=== PATIENT | female | born 1990 | race Caucasian/White ===

== ENCOUNTER → 2018-02-23 13:42 | Outpatient (CLI) | payer OTHER, MEDICAID, SELFPAY | PROVIDERS: Visit Provider Physician Assistant | DX: J02.9 Acute pharyngitis, unspecified (principal) | CPT/HCPCS: 87070 ==

== ENCOUNTER 2020-09-13 18:01 | Inpatient (IN) | payer OTHER, MEDICAID, SELFPAY ==
--- NOTE | 2020-09-13 19:00 | P.HPOB_ITS ---
OB HPI History of Present Condition Chief complaint: Induction Narrative: Alisa Quintana is a 30 year old A1 BETTYE 09/18/2020 by LMP and 1st trimester US admitted today ay 39+2 for ripening and induction due to non-severe PIH and a history of PEC with previous . After receiving her care on [facility], she is now delivering here at [facility] due to the current shutdown of [facility]'s OB unit. She has been on 81 mg ASA since the second trimester. Her most recent BP earlier this week was 140/80. 67# weight gain and infant is described as LGA in the records which accompany her. She denies and visual changes, RUQ, or H/A currently although she has seen sparkles in the last few days. Patient wishes to have an epidural for pain relief in labor. 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 Family History (Updated 09/13/20 @ 19:15 by Silvio Joseph MD) Mother Alcoholism Osteoporosis Hepatitis C infection Stroke Grandmother Breast cancer Social History (Updated 09/13/20 @ 19:16 by Silvio Joseph MD) Smoking Status: Former smoker second hand exposure: No alcohol intake: current substance use type: does not use during the past year weight has: increased > 10 lbs well-balanced diet: daily or most days Type(s) of exercise: walking Meds Home Medications and Allergies Home Medications Medication Instructions Recorded Confirmed Type aspirin 09/13/20 History vit [id number] tab 09/13/20 History [ Vitamin] Allergies Allergy/AdvReac Type Severity Reaction Status Date / Time No Known Allergies Allergy Uncoded 07/05/17 12:12 Review of Systems Review of Systems ROS: Yes All systems reviewed with the patient and are negative except as otherwise documented Exam Const General: cooperative and comfortable Nutritional Appearance: overweight Orientation: alert and oriented x3 HENMT Head: normocephalic and atraumatic Ears: hearing grossly normal bilaterally Nose: external nose normal Face and sinus: face symmetric Mouth: oral mucosae normal and tongue normal Eyes General: appearance normal, both eyes and all related structures Eyelids: eyelids normal Conjunctivae: conjunctivae normal Sclera: sclerae normal Cornea: corneas normal Pupils: PERRL EOM: EOM intact bilaterally Neck Neck: full ROM and No lymphadenopathy Thyroid: thyroid normal Lymphatic: No lymphadenopathy Resp Effort & Inspection: normal respiratory effort, able to speak in complete sentences and abnormal respiratory pattern Auscultation: clear to auscultation bilaterally Cardio Rate: regular rate Rhythm: regular rhythm Heart Sounds: S1 normal, S2 normal and no murmurs GI Inspection: other (Gravid FH 41 cm) Palpation: soft Auscultation: normal bowel sounds OB/External & Speculum: deferred Manual OB Exam: dilated 2, effaced 50% and station high Uterus Location (Fundal Height): 41 Presentation: vertex Estimated Weight (lbs): 8 Neuro Cranial Nerves: CN's II-XI intact bilaterally Cognition: normal cognition Speech: speech normal DTR's: Rt Patellar: 2+ and Lt Patellar: 2+ Psych Appearance: grossly normal Mental Status: mental status grossly normal Speech and Movement: speech and movement normal Mood: congruent mood Affect: normal affect Attitude: cooperative Thought Process: normal Thought Content: normal Judgment: judgment good Objective Labs Result Diagrams: 09/13/20 19:25 09/13/20 20:50 Assessment and Plan Assessment and Plan Assessment and Plan narrative: 1. Intrauterine gestation, Schwarz, term, vertex, LGA by prior ultrasound - Admit for ripening/induction - Cytotec PO 50 mcg q 6 hrs. 2. GBS positive - PCN AB prophylaxis 3. History of preeclampsia - PIH/PEC labs to R/O PEC 4. Gestational hypertension without severe features - As above Time Spent with Patient Total time spent with greater than 50% in coordination of care (as documented) at patient's floor/unit and/or counseling patient:: 15-24 minutes
[2020-09-13] MEDS: LACTATED RINGERS 1,000 ML 100 ML IV (19:32)
[2020-09-13] MEDS: PENICILLIN G POTASSIUM 5,000,000 UNIT in DEXTROSE 5% IN WATER 250 ML IV (19:35)
[2020-09-13 19:46] VITALS: BP 124/59
[2020-09-13 20:07] LABS: COVID19 - ADMIT (NP swab/PCR) Negative (Negative)
[2020-09-13 20:25] LABS: Add Manual Diff / Slide Review NO; Basophils Absolute Auto 0 /uL (0-100); Basophils Percent Auto 0.3 % (0-2); Eosinophils Absolute Auto 200 /uL (0-450); Eosinophils Percent Auto 1.7 % (2-4); Hematocrit 36.1 % (36-46); Hemoglobin 12.4 g/dL (12.0-16.0); Lymphocytes Absolute Auto 2900 /uL (1100-4500); Lymphocytes Percent Auto 23.4 % (25-40); Mean Corpuscular HGB Conc 34.4 % (30-36); Monocytes Absolute Auto 900 /uL (0-900); Neutrophils Absolute Auto 8400 /uL (1500-7000); Neutrophils Percent Auto 67.6 % (50-75); Platelet Count 359 X10^3/uL (150-400); Red Blood Cell Count 3.76 X10^6/uL (4.0-5.2); Red Cell Distribution Width 14.3 % (11.6-14.8); White Blood Cell Count 12.5 X10^3/uL (4.5-11.0)
[2020-09-13] MEDS: DINOPROSTONE VAG (CERVIDIL) 10 MG VAG (21:05)
[2020-09-13 21:06] LABS: Aspartate Aminotransferase 25 IU/L (14-36); Blood Urea Nitrogen 13 mg/dL (7-17); Estimated Glomerular Filt Rate > 60.0 mL/min (>60); Uric Acid 5.8 mg/dL (2.5-6.2)
--- NOTE | 2020-09-13 21:59 | PM.OBPNLAB ---
Date/Time Date Patient Seen: 09/13/20 Time Patient Seen: 20:15 Pain Control Pain control: tolerating well Pelvic Exam Dilation (cm): 2 Effacement (%): 50 station: -3 Amniotic membrane status: Intact Comments: Per RN exam on admission Status status: Category l Heart Rate Baseline: 140 Monitor Accelerations: Present Monitor Decelerations: Absent Monitor Variability: Moderate Comments: Patient is having uterine contractions q 2-3 minutes and therefore will place cervidil rather than use PO cytotec for ripening due it's relative reversibility in the face of uterine irritability/contractions. Assessment and Plan Assessment: induction ongoing Plan: continuous present management
[2020-09-13] MEDS: PENICILLIN G POTASSIUM 3,000,000 UNIT/50 ML FROZ.PIGGY 100 UNIT IV (23:30)
[2020-09-14] MEDS: PENICILLIN G POTASSIUM 3,000,000 UNIT/50 ML FROZ.PIGGY 100 UNIT IV ×3 (03:50→11:36)
--- NOTE | 2020-09-14 07:11 | PM.OBPNLAB ---
Date/Time Date Patient Seen: 09/14/20 Time Patient Seen: 07:11 Pain Control Pain control: tolerating well Comments: Desires epidural once in the active phase Pelvic Exam Dilation (cm): 2 Effacement (%): 90 station: -2 Amniotic membrane status: Intact Contractions Contractions on admission: irregular Monitor mode: External Contraction frequency (min): 2 Contraction duration (min): 1 Contraction pattern: Regular Contraction phase: Resting Contraction intensity: Mild Status status: Category l Heart Rate Baseline: 140 Monitor Accelerations: Episodic Monitor Decelerations: Absent Monitor Variability: Moderate Assessment and Plan Assessment: induction ongoing Plan: begin patient augmentation Comments: Will remove Cervidil and initiate low dose pitocin per protocol. AROM once vertex is better applied and deeper in the pelvis.
[2020-09-14] MEDS: OXYTOCIN PREMIX 30 UNIT/500 ML PLAST..BAG IV (08:24)
[2020-09-14] MEDS: LACTATED RINGERS 1,000 ML 100 ML IV (11:02)
--- NOTE | 2020-09-14 12:07 | P.PNOB_ITS ---
Date/Time Date Patient Seen: 09/14/20 Time Patient Seen: 12:07 Pain Control Pain control: tolerating well Comments: Anesthesia notified of patient's request for RIKKI placement. Pelvic Exam Dilation (cm): 5 Effacement (%): 90 station: -1 Amniotic membrane status: Ruptured Comments: AROM, clear @ 1204 Contractions Contractions on admission: regular Pitocin rate (mU/min): 5 Contraction frequency (min): 2 Contraction duration (min): 1 Contraction pattern: Regular Contraction phase: Resting Contraction intensity: Strong/Firm Status status: Category l Heart Rate Baseline: 140 Monitor Accelerations: Present Monitor Decelerations: Absent Monitor Variability: Moderate Assessment and Plan Assessment: induction ongoing Comments: Anticipate rapid progress following AROM given her rapid labor (> 1 h r.) with her most recent
--- NOTE | 2020-09-14 12:40 | PM.AN.REGBLK ---
Regional Block Pre-procedure Procedure: Continuous Lumbar Epidural for L&D Attending OB provider: Silvio Joseph PMH/ROS narrative: term, non-severe PIH Hx: No personal or family history of anesthesia problems. ASA Class: II Labs: Hct 36.1 % (36-46) 09/13/20 19:25 Hct Cancelled 09/13/20 19:25 Plt Count 359 X10^3/uL (150-400) 09/13/20 19:25 Plt Count Cancelled 09/13/20 19:25 Medications: Current Medications Generic Name Dose Route Start Last Admin Trade Name Freq PRN Reason Stop Dose Admin Carboprost Tromethamine 250 mcg 09/13/20 19:33 Carboprost 250 Mcg/Ml Ampul IM Q90M PRN Bleeding Diphenhydramine HCl 25 mg 09/14/20 09:11 Diphenhydramine 50 Mg/Ml Vial IV Q10M PRN Pruritis Penicillin G Potassium 3,000,000 unit in 50 mls @ 100 mls/hr 09/13/20 23:45 09/14/20 11:36 Penicillin G Potassium IV 100 mls/hr Q4H JUANA Administration Lactated Ringer's 1,000 mls @ 100 mls/hr 09/13/20 19:45 09/14/20 11:02 Lactated Ringers IV 100 mls/hr CONT JUANA Administration Oxytocin/Lactated Ringer's 30 unit in 500 mls @ 200 mls/hr 09/13/20 19:33 Oxytocin Premix IV CONT PRN Bleeding Protocol Tranexamic Acid 1,000 mg/ 100 mls @ 200 mls/hr 09/13/20 19:33 Sodium Chloride IV NOW PRN Bleeding Oxytocin/Lactated Ringer's 30 unit in 500 mls @ 1 mls/hr 09/14/20 07:15 09/14/20 08:24 Oxytocin Premix IV 1 milliunit/min TITRATE JUANA 1 mls/hr Administration Protocol 1 MILLIUNIT/MIN FENT 2MCG/ML BUPIV 0.125% EPI 200 mcg in 100 mls @ 6 mls/hr 09/14/20 09:15 Fentanyl/Bupiv/Ns 2mcg/Ml - 0.125% EPIDURAL CONT JUANA Methylergonovine Maleate 0.2 mg 09/13/20 19:33 Methylergonovine 0.2 Mg/Ml Vial IM NOW PRN Bleeding Methylergonovine Maleate 0.2 mg 09/13/20 19:33 Methylergonovine 0.2 Mg Tablet PO Q6HR PRN Heavy Bleeding Misoprostol 1,000 mcg 09/13/20 19:33 Misoprostol 200 Mcg Tablet VT NOW PRN Bleeding Misoprostol 400 mcg 09/13/20 19:33 Misoprostol 200 Mcg Tablet SL NOW PRN Bleeding Misoprostol 50 mcg 09/13/20 21:00 Misoprostol 100 Mcg Tablet PO QID JUANA Misoprostol 800 mcg 09/13/20 19:33 Misoprostol 200 Mcg Tablet VT NOW PRN Bleeding Ondansetron HCl 4 mg 09/13/20 19:33 Ondansetron 4 Mg/2 Ml Inj IV Q4HR PRN Nausea And Vomiting Oxytocin 10 unit 09/13/20 19:33 Oxytocin 10 Unit/Ml Vial IM NOW PRN Bleeding Allergies: Allergies Allergy/AdvReac Type Severity Reaction Status Date / Time No Known Drug Allergies Allergy Verified 09/14/20 09:13 Procedure Insertion date: 09/14/20 Insertion time: 12:20 Prep/Local: betadine x3 Interspace: L3-4 Patient position: sitting Needle: 18 gauge Easy Square Feettead (CSE: 27g Pencan through Hustead, clear CSF, 0.6mL 0.25% bupiv) Loss of resistance with: saline JERZY at (cm): 5 Catheter placed at SKIN (cm): 11 Catheter in SPACE (cm): 6 Insertion: No CSF, No Blood, No Paresthesia with insertion, No Paresthesia with injection and No Test dose reaction Initial Medications TEST DOSE time: 12:24 TEST DOSE: 1.5% lidocaine with epinephrine 1:200k (mL): 3 BOLUS DOSE time: 12:36 BOLUS DOSE (mL): 3 BOLUS DOSE med: other (infusate) Infusion INFUSION: 0.125% bupivacaine and with fentanyl 2 mcg/mL Initial rate (mL/hr): 6 Subsequent interventions: Post-procedure Anesthesia time START: 12:16 Anesthesia time END: 13:47 Post-procedure Anesthesia Assessment: Yes CV function: HR/BP stable, Yes Resp function: RR/sat/airway adequate, Yes Mental status appropriate and No Anesthesia complications
--- NOTE | 2020-09-14 13:22 | PM.OBPNLAB ---
Date/Time Date Patient Seen: 09/14/20 Time Patient Seen: 13:22 Pain Control Pain control: epidural Pelvic Exam Dilation (cm): 10 Effacement (%): 100 station: +2 Amniotic membrane status: Ruptured Comments: Thin meconium Contractions Monitor mode: External Pitocin rate (mU/min): 0 Contraction frequency (min): 2 Contraction duration (min): 1 Contraction pattern: Regular Contraction phase: Resting Contraction intensity: Strong/Firm Status status: Category ll Heart Rate Baseline: 135 Monitor Accelerations: Present Monitor Decelerations: Recurrent and Variable Monitor Variability: Moderate Comments: Pitocin off, O2, position change, fluid bolus, FSE applied Assessment and Plan Assessment: active labor Plan: other (Start pushing. ) Comments: Anticipate . Variable decelerations have decreased in depth/duration.
--- NOTE | 2020-09-14 14:01 | PM.OBPRVD ---
Events: Induced HTN, Labor Induction and Labor Augmentation Labor & Delivery Delivery date: 09/14/20 Intrapartal Events: None Cervical ripening method: per Cervidil protocol Induction method: per pitocin protocol Delivery augmentation: rupture of membranes and pitocin Delivery monitor: external FHT and internal FHT Route of delivery: Episiotomy description: None L&D Laceration Description: Superficial (Right paraurethral and perineal) Delivery repair: other (None required) Estimated blood loss (mL): 75 Anesthesia Type: Epidural Complications: None [place] Baby 1: Infant gender: Male Presentation: vertex Position: Left Occiput Anterior Placenta delivery description: Spontaneous Cord Vessel Description: 3 Vessels, Around Body x1 and Around Extremity x1 score (1 min): 8 score (5 min): 9 weight: 8 lb 2 oz Plan for aftercare: Routine care
[2020-09-15 06:55] LABS: Add Manual Diff / Slide Review NO; Basophils Absolute Auto 100 /uL (0-100); Basophils Percent Auto 0.4 % (0-2); Eosinophils Absolute Auto 200 /uL (0-450); Eosinophils Percent Auto 1.2 % (2-4); Hematocrit 35.4 % (36-46); Hemoglobin 11.9 g/dL (12.0-16.0); Lymphocytes Absolute Auto 2600 /uL (1100-4500); Lymphocytes Percent Auto 16.6 % (25-40); Mean Corpuscular HGB Conc 33.5 % (30-36); Mean Corpuscular Hemoglobin 32.1 PG (26-34); Mean Corpuscular Volume 95.8 fL (80-100); Monocytes Absolute Auto 900 /uL (0-900); Monocytes Percent Auto 5.6 % (3-14); Neutrophils Absolute Auto 11700 /uL (1500-7000); Neutrophils Percent Auto 76.2 % (50-75); Platelet Count 341 X10^3/uL (150-400); Red Cell Distribution Width 13.9 % (11.6-14.8); White Blood Cell Count 15.4 X10^3/uL (4.5-11.0)
--- NOTE | 2020-09-15 08:33 | P.DS_ITS ---
History of Present Illness History of Present Illness Chief complaint: maternity Discharge Providers Provider Date of admission: 09/13/20 18:01 Discharge Date: 09/15/20 Consults: 09/13/20 19:33 Consult to Anesthesiology Urgent Comment: Consulting Provider: Silvio Joseph Reason for consultation: RIKKI placement in labor Has provider been notified: No 09/15/20 14:04 Consult to [employer] Routine Comment: Discharge provider: Silvio Joseph MD Summary Hospital Course Discharge Diagnosis: Intrauterine , schwarz, vertex, term, delivered Gestational Hypertension Hospital Course: The patient was admitted to the [facility] on the evening of 09/13/2020 for cervical ripening prior to induction. Cervidil was placed overnight and Pitocin initiated on the morning of 09/14/2020. A ROM demonstrated very thin meconium staining and after some deep variables as she entered the 2nd stage, she delivered spontaneously over an intact perineum a viable male Apgars 8 and 9 and a weight of 8 lb 2 oz. Mother and baby have done extremely well following delivery and she will be discharged on her 1st day to home. H/H are 1.9/35.4 on day 1. Prior to discharge the patient was kept 30 precautionary symptoms, limitations of activity, medications, and follow-up. She will be using Tylenol and ibuprofen OTC for pain and OTC stool softeners for constipated of symptoms. She plans to use Depo-Provera for contraception and will plan to get her 1st injection with her regular provider on [facility]. Status at Discharge Cognitive/behavioral status at discharge: oriented and at baseline, oriented Functional status at discharge: independent ambulation Overall status at discharge: patient is back to baseline Time Spent with Patient Time spent: Less than 30 minutes Exam Const General: cooperative, healthy appearing and comfortable Nutritional Appearance: overweight Orientation: alert and oriented x3 HENMT Head: normocephalic and atraumatic Ears: hearing grossly normal bilaterally Nose: external nose normal Eyes General: appearance normal, both eyes and all related structures Conjunctivae: conjunctivae normal Sclera: sclerae normal EOM: EOM intact bilaterally Resp Effort & Inspection: normal respiratory effort and able to speak in complete sentences Auscultation: clear to auscultation bilaterally Cardio Rate: regular rate Rhythm: regular rhythm Heart Sounds: S1 normal, S2 normal and no murmurs GI Inspection: normal to inspection Palpation: soft and no hepatosplenomegaly Auscultation: normal bowel sounds OB/External & Speculum: deferred Uterus Location (Fundal Height): 16 Psych Appearance: grossly normal Speech and Movement: speech and movement normal Mood: congruent mood Affect: normal affect Attitude: cooperative Thought Process: normal Objective Labs Result Diagrams: 09/15/20 06:28 09/13/20 20:50 Labs: Laboratory Results - last 24 hr 09/13/20 09/15/20 19:25 06:28 WBC 15.4 H RBC 3.70 L Hgb 11.9 L Hct 35.4 L MCV 95.8 MCH 32.1 MCHC 33.5 RDW 13.9 Plt Count 341 Neut % (Auto) 76.2 H Lymph % (Auto) 16.6 L Bowie % (Auto) 5.6 Eos % (Auto) 1.2 L Baso % (Auto) 0.4 Neut # (Auto) 32737 H Lymph # (Auto) 2600 Bowie # (Auto) 900 Eos # (Auto) 200 Baso # (Auto) 100 Antibody Screen Negative [facility] Medical History Low back pain 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 Family History Mother Alcoholism Osteoporosis Hepatitis C infection Stroke Grandmother Breast cancer Social History Smoking Status: Former smoker second hand exposure: No alcohol intake: current substance use type: does not use during the past year weight has: increased > 10 lbs well-balanced diet: daily or most days Type(s) of exercise: walking Discharge Assessment & Plan Assessment and Plan Assessment: Intrauterine gestation, Schwarz, term, vertex, delivered Gestational hypertension GBS carrier Plan of Treatment: Discharge home to independent self-residential monitoring of blood pressure Continue vitamins, and baby ASA OTC Tylenol and/or ibuprofen for pain OTC stool softeners for constipation as needed Follow-up with her OBGYN in [place] for 6 weeks check and initiation of Depo-Provera for contraception. Return or contact office immediately for increasing pain, increasing bleeding, or temperature greater than 100.4?. Discharge Plan Discharge Plan Patient Disposition: Home Discharge orders & Medications Prescriptions: New ibuprofen 400 mg Tablet 800 mg PO Q6HR PRN (Reason: Pain, Mild (1-3)) Qty: 30 RF: 1 acetaminophen 325 mg Tablet 975 mg PO Q6HR PRN (Reason: Pain, Mild (1-3)) Qty: 60 RF: 1 docusate sodium [DOK] 100 mg Capsule 100 mg PO BID PRN (Reason: Constipation) Qty: 60 RF: 0 Continued aspirin [Aspirin Low Dose] 81 mg tablet,delayed release (DR/EC) 81 mg PO DAILY RF: 0 Vitamin 27 mg iron- 800 mcg tablet 1 tab PO DAILY RF: 0
[2020-09-15 12:41] VITALS: BP 114/65; PULSE 74; RESP 20; TEMP 36.7
== END 2020-09-15 14:05 | disposition home or self-care (01) | DRG 560 ==
PROVIDERS: Admitting Provider Obstetrics & Gynecology; Referring Provider Obstetrics & Gynecology; Visit Provider Obstetrics & Gynecology
DX: O13.4 Gestational [pregnancy-induced] hypertension without significant proteinuria, complicating childbirth (principal); B95.1 Streptococcus, group B, as the cause of diseases classified elsewhere; Z3A.39 39 weeks gestation of pregnancy; Z37.0 Single live birth; O77.0 Labor and delivery complicated by meconium in amniotic fluid; Z20.822 Contact with and (suspected) exposure to COVID-19
CPT/HCPCS: 01967; 36415; 59050; 59409; 84450; 84550; 85025; 86850; 86900; 86901; 87635; 99222; 99238; C9803; G0379; J2540; J2590